=== PATIENT | male | born 2000 | race Native Hawaiian/Other Pacific Islander ===

== ENCOUNTER 2019-07-29 09:52 | Emergency (ER) | payer BC ==
[~2019-07-29] VITALS: Ht 170.2 cm; Wt 97.5 kg
[2019-07-29 09:55] VITALS: TEMP 100
[2019-07-29 11:12] VITALS: BP 126/84
== END 2019-07-29 11:10 | disposition home or self-care (01) ==
LOC: ED 09:52
DX: S43.491A Other sprain of right shoulder joint, initial encounter (principal); W01.0XXA Fall on same level from slipping, tripping and stumbling without subsequent striking against object, initial encounter; Y92.098 Other place in other non-institutional residence as the place of occurrence of the external cause
CPT/HCPCS: 96372; 99282; 99283; J1885